=== PATIENT | male | born 2000 | race American Indian/Alaskan Native ===

== ENCOUNTER 2019-05-23 13:35 | Emergency (ER) | payer MEDICAID ==
--- NOTE | 2019-05-23 13:43 | Emergency Department Report ---
Blank Doc - Documentation Documentation: 19-year-old male that presents with right earache with decreased hearing. Exam: Earwax buildup--unable to view TM. This initial assessment/diagnostic orders/clinical plan/treatment(s) is/are subject to change based on patient's health status, clinical progression and re-assessment by fellow clinical providers in the ED. Further treatment and workup at subsequent clinical providers discretion. Patient/guardians urged not to elope from the ED as their condition may be serious if not clinically assessed and managed. Initial orders include: 1- Patient sent to [facility] for further evaluation and treatment
[2019-05-23] MEDS ORDERED: COLACE PO ONE (14:34)
[2019-05-23] MEDS ORDERED: HYDROGEN PEROXIDE TP ONE (14:34)
--- NOTE | 2019-05-23 14:52 | Emergency Department Report ---
ED ENT HPI - General Chief complaint: Earache Stated complaint: RT EAR/CANT EAR Time Seen by Provider: 05/23/19 13:42 Source: patient Mode of arrival: Ambulatory Limitations: No Limitations - History of Present Illness Initial comments: Patient is a 19-year-old male presents emergency room with complaints of his right ear being muffled that began last night. Denies any ear pain, ear drainage, fever. pt tried to use some warm water in the ear. He denies putting anything in the ear to try wax removal. He denies any past medical history or allergies to medications. - Related Data Previous Rx's Medication Instructions Recorded Last Taken Type Ibuprofen [Motrin] 600 mg PO Q8H PRN #15 tablet 06/10/16 Unknown Rx Allergies Allergy/AdvReac Type Severity Reaction Status Date / Time No Known Allergies Allergy Unverified 06/10/16 08:00 ED Dental HPI - General Chief complaint: Earache Stated complaint: RT EAR/CANT EAR Time Seen by Provider: 05/23/19 13:42 Source: patient Mode of arrival: Ambulatory Limitations: No Limitations - Related Data Previous Rx's Medication Instructions Recorded Last Taken Type Ibuprofen [Motrin] 600 mg PO Q8H PRN #15 tablet 06/10/16 Unknown Rx Allergies Allergy/AdvReac Type Severity Reaction Status Date / Time No Known Allergies Allergy Unverified 06/10/16 08:00 ED Review of Systems ROS: Stated complaint: RT EAR/CANT EAR Other details as noted in HPI Comment: All other systems reviewed and negative ED Past Medical Hx - Past Medical History Previous Medical History?: No - Surgical History Past Surgical History?: No - Social History Smoking Status: Never Smoker Substance Use Type: None - Medications Home Medications: Home Medications Medication Instructions Recorded Confirmed Last Taken Type Ibuprofen [Motrin] 600 mg PO Q8H PRN #15 tablet 06/10/16 Unknown Rx ED Physical Exam - General Limitations: No Limitations General appearance: alert, in no apparent distress - Head Head exam: Present: atraumatic, normocephalic - Eye Eye exam: Present: normal appearance - ENT ENT exam: Present: mucous membranes moist, other (small amount of wax present in the left ear canal, the rest of canal and left TM appear normal, cerumen impaction present in the right canal obscuring view of right TM) - Neurological Exam Neurological exam: Present: alert, oriented X3 - Psychiatric Psychiatric exam: Present: normal affect, normal mood - Skin Skin exam: Present: warm, dry, intact ED Course Vital Signs 05/23/19 05/23/19 13:42 16:51 Temperature 98.3 F Pulse Rate 84 80 Respiratory 13 14 Rate Blood Pressure 130/72 131/70 [Left] O2 Sat by Pulse 98 99 Oximetry - Ear Wax Removal Both Ears Cerumenolytic Used: Colace Ear Canal Irrigated by: other (PA-C) Ear Canal Irrigated With: warm saline with H2O2 using syringe/angiocath Results: Re-examined: cerumen removed completel TM Visible: TM(s) intact, normal appe Ear Canal: atraumatic Patient Tolerated Procedure: well, no complications Complications: no problems Additional Comments: colace placed by RN to soften wax I used catheter with 50/50 mixture of peroxide and normal saline for irrigation all wax was removed right canal completely impacted left canal with small amount present pt tolerated well pt states his hearing has completely improved ED Medical Decision Making - Medical Decision Making Patient is a 19-year-old male presents emergency room with complaints of his right ear being muffled that began last night. Denies any ear pain, ear drainage, fever. pt tried to use some warm water in the ear. He denies putting anything in the ear to try wax removal. He denies any past medical history or allergies to medications. on exam: small amount of wax present in the left ear canal, the rest of canal and left TM appear normal, cerumen impaction present in the right canal obscuring view of right TM. wax removal per procedure note, all wax removed, pt tolerated well, pt states hearing completely improved, bilateral canals and TMs are normal, no TM perforation. discussed with pt to please follow up with a primary care doctor in the next 2-3 days. Return to the emergency room for any new or worsening symptoms. - Differential Diagnosis cerumen impaction, FB, otitis media, otitis externa Critical care attestation.: If time is entered above; I have spent that time in minutes in the direct care of this critically ill patient, excluding procedure time. ED Disposition Clinical Impression: Cerumen impaction Qualifiers: Laterality: right Qualified Code(s): H61.21 - Impacted cerumen, right ear Disposition: TO HOME OR SELFCARE Is pt being admited?: No Does the pt Need Aspirin: No Condition: Stable Instructions: Cerumen Impaction (ED) Additional Instructions: Follow up with a primary care doctor in the next 2-3 days. Return to the emergency room for any new or worsening symptoms. Referrals: [facility] [Provider Group] - 2-3 Days Time of Disposition: 16:34 Print Language: THAI
[2019-05-23] MEDS ORDERED: NACL 0.9% IR ONE (16:17)
[2019-05-23 16:52] VITALS: BP 131/70
== END 2019-05-23 16:51 | disposition home or self-care (01) ==
LOC: ED 13:35
DX: H61.23 Impacted cerumen, bilateral (principal)